=== PATIENT | female | born 1955 | race Caucasian/White ===

== ENCOUNTER 2021-12-29 02:32 | Inpatient (IN) | payer MEDICARE, MEDICAID ==
[2021-12-29] MEDS ORDERED: EPINEPHrine 1 MG/ML AMP ONE (02:50)
[2021-12-29] MEDS ORDERED: Albuterol Sulfate 2.5 mg/3 ml Neb ONE ×2 (02:55→02:57)
[2021-12-29 03:27] LABS: #Basophils 0.1 10x3/uL (0.0-0.2); #Eosinphils 0.3 10x3/uL (0.0-0.5); #Monocytes 0.4 10x3/uL (0.0-1.1); #Neutrophils 4.7 10x3/uL (1.5-8.4); %Basophils 0.6 % (0.0-2.0); %Eosinophils 3.5 % (0.0-6.0); %Lymphocytes 32.3 % (18.0-47.0); %Monocytes 4.6 % (0.0-10.0); %Neutrophils 58.8 % (40.0-75.0); Hemoglobin 15.1 g/dL (12.0-15.5); Mean Corpuscular HGB CONC 32.5 g/dL (32.0-36.0); Mean Corpuscular Hemoglobin 32.6 pg (27.0-33.0); Mean Corpuscular Volume 100.2 fl (81.6-98.3); Mean Platelet Volume 9.3 fl (7.4-10.4); Platelet Count 184 10x3/uL (150-450); RBC Distribution Width 13.2 % (11.5-14.5); Red Blood Cell (RBC) Count 4.63 10x6/uL (3.90-5.03); White Blood Cell (WBC) Count 8.1 10x3/uL (3.5-10.5)
[2021-12-29 03:34] LABS: Actual Bicarbonate (HCO3a) 20.1 mEq/L (22-28); Base Excess (BEa) -7.1 mEq/L (-2.0 to +3.0); Calcium, Ionized (arterial) 1.22 mmol/L (1.12-1.30); Carboxyhemoglobin (COHb) 0.8 gm% (0.0-3.0); Hemoglobin (Hb) 15.2 g/dL (12.0-16.0); O2 Tension (PaO2), arterial 229.6 mmHg (> 80.0); Potassium - ABG Lab 3.7 mmol/L (3.70-5.30); Puncture Site LRA; RapidComm Collect By CP.MC; pH, Arterial 7.25 (7.35-7.45)
[2021-12-29 03:36] LABS: ALT (SGPT) 15 U/L (8-55); AST (SGOT) 18 U/L (5-34); Albumin 4.4 g/dL (3.4-4.8); Alkaline Phosphatase 50 U/L (40-110); Anion Gap 11 mmol/L (10-20); BUN (Urea Nitrogen) 10 mg/dL (9.8-20.1); Bilirubin, Total 0.4 mg/dL (0.2-1.2); Calc. Creatinine Clearance 0 mL/min (70-130); Calcium 8.7 mg/dL (7.8-10.44); Carbon Dioxide 25 mmol/L (23-31); Chloride 109 mmol/L (98-107); Glucose 181 mg/dL (80-115); Protein, Total 7.4 g/dL (5.8-8.1); Sodium 141 mmol/L (136-145)
[2021-12-29 04:41] LABS: SARS-CoV-2 NAA Rapid Test Not Detected (NotDetected)
[2021-12-29] MEDS ORDERED: Guaifenesin DM 100-10/5 ML UDCUP PO PRN (04:43)
[2021-12-29] MEDS ORDERED: Calcium Carbonate 500 MG ChewTAB PO PRN (04:43)
[2021-12-29] MEDS ORDERED: Senokot S 8.6-50 MG TAB PO PRN (04:43)
[2021-12-29] MEDS ORDERED: Melatonin 3 MG TAB PO PRN (04:43)
[2021-12-29] MEDS ORDERED: Ondansetron ODT 4 MG TAB PO PRN (04:43)
[2021-12-29] MEDS ORDERED: Ondansetron PF 4 MG/2 ML Vial IVP PRN (04:43)
[2021-12-29] MEDS ORDERED: Dextrose 5% in Water 1,000 ML IV PRN (04:49)
[2021-12-29] MEDS ORDERED: HumaLOG 300 UNITS/3 ML VIAL SC PRN (04:49)
[2021-12-29] MEDS ORDERED: Dextrose 50% Abboject 50 ML SYRINGE SLOW IVP PRN (04:49)
[2021-12-29] MEDS ORDERED: Sodium Chloride 0.45% 1,000 ML IV SCH (05:00)
[2021-12-29 05:06] LABS: Magnesium 3.3 mg/dL (1.6-2.6)
[2021-12-29 05:11] VITALS: BMI 29.2
[2021-12-29] MEDS ORDERED: Potassium Chloride 20 MEQ in Premix Bag 1 BAG IVPB SCH (05:30)
[2021-12-29] MEDS: methylPREDNISolone Sod Succ 40 MG VIAL IVP SCH ×3 (05:51→20:00)
[2021-12-29] MEDS: Nicotine 21 MG PATCH TD SCH (05:53)
[2021-12-29] MEDS: Acetaminophen 325 MG TAB PO PRN ×3 (05:56→16:25)
[2021-12-29] MEDS: Arformoterol 15 MCG/2 ML NEB NEB SCH ×2 (07:54→19:25)
[2021-12-29] MEDS: Budesonide 0.5 MG/2 ML NEB NEB SCH ×2 (07:55→19:25)
[2021-12-29] MEDS: Pantoprazole 40 MG VIAL IVP SCH (08:04)
[2021-12-29] MEDS: Enoxaparin Sodium 40 MG/0.4 ML SYRINGE SC SCH (08:04)
[2021-12-29] MEDS: ALPRAZolam 0.5 MG TAB PO SCH ×3 (08:06→21:32)
[2021-12-29] MEDS ORDERED: Ketorolac Tromethamine 30 MG/ML VIAL IVP SCH (13:00)
[2021-12-29] MEDS ORDERED: hydrOXYzine Pamoate 25 mg Capsule PO SCH (21:15)
[2021-12-30] MEDS: methylPREDNISolone Sod Succ 40 MG VIAL IVP SCH ×3 (02:02→20:12)
[2021-12-30] MEDS: Acetaminophen 325 MG TAB PO PRN (02:59)
[2021-12-30 04:04] LABS: Actual Bicarbonate (HCO3v) 24 mEq/L (22-28); Base Excess -2.3 mEq/L (-2.0 to +3.0); Calcium, Ionized (venous) 1.13 mmol/L (1.16-1.32); Chloride (VBG) 104 mmol/L (98-106); Potassium (VBG) 3.91 mmol/L (3.70-5.30); Puncture Site Other Site; Sodium 134.8 mmol/L (133-146); pH (venous) 7.34 (7.32-7.43)
[2021-12-30 04:10] LABS: #Monocytes 0.2 10x3/uL (0.0-1.1); #Neutrophils 8.5 10x3/uL (1.5-8.4); %Basophils 0.1 % (0.0-2.0); %Lymphocytes 9.3 % (18.0-47.0); %Monocytes 1.9 % (0.0-10.0); %Neutrophils 88.3 % (40.0-75.0); Hemoglobin 14.6 g/dL (12.0-15.5); Mean Corpuscular HGB CONC 33.5 g/dL (32.0-36.0); Mean Corpuscular Hemoglobin 32.8 pg (27.0-33.0); Mean Platelet Volume 9.5 fl (7.4-10.4); Platelet Count 229 10x3/uL (150-450); RBC Distribution Width 13.2 % (11.5-14.5); Red Blood Cell (RBC) Count 4.45 10x6/uL (3.90-5.03); White Blood Cell (WBC) Count 9.7 10x3/uL (3.5-10.5)
[2021-12-30 04:11] LABS: Anion Gap 13 mmol/L (10-20); BUN (Urea Nitrogen) 18 mg/dL (9.8-20.1); Calc. Creatinine Clearance 80 mL/min (70-130); Calcium 9.1 mg/dL (7.8-10.44); Carbon Dioxide 24 mmol/L (23-31); Chloride 106 mmol/L (98-107); Glucose 129 mg/dL (80-115); Magnesium 2.6 mg/dL (1.6-2.6); Phosphorus 3.2 mg/dL (2.3-4.7); Potassium 3.8 mmol/L (3.5-5.1); Sodium 139 mmol/L (136-145)
[2021-12-30] MEDS: Nicotine 21 MG PATCH TD SCH (06:24)
[2021-12-30] MEDS: Arformoterol 15 MCG/2 ML NEB NEB SCH ×2 (07:34→19:40)
[2021-12-30] MEDS: Budesonide 0.5 MG/2 ML NEB NEB SCH ×2 (07:34→19:40)
[2021-12-30] MEDS: Pantoprazole 40 MG VIAL IVP SCH (07:50)
[2021-12-30] MEDS: Enoxaparin Sodium 40 MG/0.4 ML SYRINGE SC SCH (07:51)
[2021-12-30] MEDS: ALPRAZolam 0.5 MG TAB PO SCH ×3 (07:52→20:13)
[2021-12-30] MEDS ORDERED: Benzonatate 100 MG CAP PO PRN (10:06)
[2021-12-30] MEDS ORDERED: guaiFENesin ER 600 MG TAB PO SCH (10:45)
[2021-12-30] MEDS ORDERED: Loratadine 10 MG TAB PO SCH (10:45)
[2021-12-30] MEDS ORDERED: Fioricet 325/50/40 mg Tablet PO SCH (11:00)
[2021-12-30] MEDS: Fioricet 325/50/40 mg Tablet PO PRN ×2 (11:21→15:17)
[2021-12-30 12:25] LABS: Hemoglobin A1c 5.5 % (4.0-6.0)
[2021-12-30] MEDS: guaiFENesin ER 600 MG TAB PO SCH (20:13)
[2021-12-31] MEDS: Nicotine 21 MG PATCH TD SCH (06:39)
[2021-12-31] MEDS: Arformoterol 15 MCG/2 ML NEB NEB SCH (07:10)
[2021-12-31] MEDS: Budesonide 0.5 MG/2 ML NEB NEB SCH (07:15)
[2021-12-31 07:25] VITALS: TEMP 97.4
[2021-12-31] MEDS: Enoxaparin Sodium 40 MG/0.4 ML SYRINGE SC SCH (08:37)
[2021-12-31] MEDS: ALPRAZolam 0.5 MG TAB PO SCH (08:37)
[2021-12-31] MEDS: methylPREDNISolone Sod Succ 40 MG VIAL IVP SCH (08:37)
[2021-12-31] MEDS: guaiFENesin ER 600 MG TAB PO SCH (08:38)
[2021-12-31] MEDS ORDERED: Loratadine 10 MG TAB PO SCH (09:00)
[2021-12-31] MEDS ORDERED: predniSONE 20 MG TAB PO SCH (09:15)
[2021-12-31 12:08] VITALS: BP 136/72
== END 2021-12-31 13:38 | disposition home or self-care (01) | DRG 189 ==
LOC: CSHERS 02:32 → CSHICU 04:48 → CSHTELE 12-30 10:58
PROVIDERS: ADMIT Family Medicine; ATTEND Family Medicine
DX: J96.01 Acute respiratory failure with hypoxia (principal); J44.1 Chronic obstructive pulmonary disease with (acute) exacerbation; E87.4 Mixed disorder of acid-base balance; F32.A Depression, unspecified; M19.90 Unspecified osteoarthritis, unspecified site; Z96.642 Presence of left artificial hip joint; Z20.822 Contact with and (suspected) exposure to COVID-19; F41.9 Anxiety disorder, unspecified; F17.210 Nicotine dependence, cigarettes, uncomplicated; R73.9 Hyperglycemia, unspecified; Z71.6 Tobacco abuse counseling; Z88.5 Allergy status to narcotic agent; Z79.51 Long term (current) use of inhaled steroids; Z79.899 Other long term (current) drug therapy
CPT/HCPCS: 36415; 36416; 36600; 71045; 80048; 80053; 82805; 83036; 83735; 83880; 84100; 84484; 85025; 93005; 93010; 94640; 94644; 94660; 94760; C9113; J0171; J1650; J1885; J1956; J2405; J2920; J3480; J7512; J7611; J7620; J7626; Q0177; U0002